=== PATIENT | female | born 1950 | race Caucasian/White ===

== ENCOUNTER 2017-04-23 13:23 | Outpatient (CLI) | payer MEDICARE, OTHER ==
--- NOTE | 2017-04-23 16:02 | Ultrasound Report ---
EXAM: ULTRASOUND LEFT PAROTID GLAND: 04/23/2017 CLINICAL INDICATION: Parotitis. TECHNIQUE: Real-time scanning was performed with associate financial representative static images obtained. FINDINGS: Ultrasound of the left parotid gland was performed. The left parotid demonstrates homogeneous echotexture. No intraparotid mass, or shadowing calculus is identified. IMPRESSION: NORMAL APPEARANCE OF THE LEFT PAROTID GLAND. TD[facility]23[facility]2017 16[facility]
== END 2017-04-23 13:24 | disposition home or self-care (01) ==
LOC: DI 13:23
PROVIDERS: ATTEND Specialist
DX: K11.21 Acute sialoadenitis (principal)
CPT/HCPCS: 76536

== ENCOUNTER 2017-05-15 08:00 | Outpatient (CLI) | payer MEDICARE, OTHER | END 2017-05-15 23:59 | disposition home or self-care (01) | LOC: LAB.R 08:00 | PROVIDERS: ATTEND Internal Medicine | DX: N20.0 Calculus of kidney (principal) | CPT/HCPCS: 81599; 82340; 82507; 82570; 83945; 84300; 84560 ==

== ENCOUNTER 2017-11-18 07:18 | Outpatient (CLI) | payer MEDICARE, OTHER ==
[2017-11-18 08:38] LABS: CK- CREATINE KINASE 74 IU/L (22-269); GLUCOSE,FASTING 131 mg/dL (70-100)
[2017-11-18 08:41] LABS: HB2 TOTAL 17.4 g/dL; HEMOGLOBIN A1C 0.87 g/dL; HEMOGLOBIN A1C % 6.7 % (4.6-6.2)
[2017-11-18 08:54] LABS: THYROID STIMULATING HORMONE 3.07 uIU/mL (0.34-5.60)
[2017-11-18 10:19] LABS: RHEUMATOID FACTOR NEGATIVE (Negative)
[2017-11-19 15:34] LABS: CREATININE 0.7 mg/dL (0.4-1.0)
[2017-11-20 14:41] LABS: ANA SCREEN POSITIVE (NEGATIVE)
== END 2017-11-18 07:19 | disposition home or self-care (01) ==
LOC: LAB 07:18
PROVIDERS: ATTEND Internal Medicine
DX: R20.0 Anesthesia of skin (principal); Z79.899 Other long term (current) drug therapy
CPT/HCPCS: 36415; 81599; 82550; 82565; 82607; 82947; 83036; 84443; 86038; 86430

== ENCOUNTER 2017-11-29 08:09 | Outpatient (CLI) | payer MEDICARE, OTHER | END 2017-11-29 08:10 | disposition home or self-care (01) | LOC: DI 08:09 | PROVIDERS: ATTEND Internal Medicine | DX: R20.0 Anesthesia of skin (principal) | CPT/HCPCS: 93922 ==

== ENCOUNTER → 2017-11-29 | Outpatient (CLI) | payer MEDICARE, OTHER ==
--- NOTE | 2017-11-29 18:07 | Ultrasound Report ---
Procedure Date: 11/29/2017 Accession Number: [id number] / [id number] Procedure: US - Duplex Lwr Ext Arterial Bilat CPT Code: FULL RESULT: EXAM: BILATERAL LOWER EXTREMITY ARTERIAL DOPPLER ULTRASOUND WITH ABIS EXAM DATE: 11/29/2017 09:35 AM. CLINICAL HISTORY: Numbness in feet. COMPARISON: None. TECHNIQUE: Real-time sonographic vascular imaging was performed by the offset assistant press operator, utilizing color-flow, Doppler flow, and spectral analysis. Multiple leasing representative static images were saved for review. FINDINGS: RIGHT LEG: SAFETY INVESTIGATOR: PSV 101 cm/sec. T waveform. PSFA: PSV 95 cm/sec. T waveform. MSFA: PSV 80 cm/sec. T Waveform. DSFA: PSV 84 cm/sec. T Waveform. PFA: PSV 62 cm/sec. T Waveform. POP: PSV 63 cm/sec. B Waveform. VERONIKA: PSV 55 cm/sec. B Waveform. HEALTH AND SAFETY ADVISOR: PSV 80 cm/sec. B Waveform. PER: PSV 53 cm/sec. B Waveform. DPA: PSV 50 cm/sec. B Waveform. LEFT LEG: SAFETY INVESTIGATOR: PSV 105 cm/sec. T Waveform. PSFA: PSV 99 cm/sec. T Waveform. MSFA: PSV 86 cm/sec. B Waveform. DSFA: PSV 81 cm/sec. T Waveform. PFA: PSV 68 cm/sec. T Waveform. POP: PSV 58 cm/sec. T Waveform. VERONIKA: PSV 50 cm/sec. B Waveform. HEALTH AND SAFETY ADVISOR: PSV 62 cm/sec. B Waveform. PER: PSV 63 cm/sec. T Waveform. DPA: PSV 52 cm/sec. B Waveform. Brachial Artery Systolic Pressure: Right 149/76. Left 151/77. Posterior tibial Artery Systolic Pressure: Right 159/63. Left 163/78. Ankle/Arm Index: Right 1.06. Left 1.07. IMPRESSION: 1. Three-vessel arterial flow to the ankles bilaterally with no focal stenosis identified. 2. Normal ABIs of 1.06 on the right, 1.07 on the left. RADIA
== END ==
LOC: DI 08:30
PROVIDERS: ATTEND Internal Medicine
DX: R20.0 Anesthesia of skin (principal)
CPT/HCPCS: 93922; 93925

== ENCOUNTER 2022-05-16 09:01 | Outpatient (CLI) | payer MEDICARE, OTHER ==
[2022-05-16 09:21] LABS: BASOPHILS % (AUTO) 0.6 %; EOSINOPHILS # (AUTO) 0.2 10^3/uL (0.0-0.7); EOSINOPHILS % (AUTO) 2.9 %; HCT - HEMATOCRIT 50.2 % (37.0-47.0); LYMPHOCYTES # (AUTO) 1.6 10^3/uL (1.5-3.5); LYMPHOCYTES % (AUTO) 24.8 %; MEAN CORPUSCULAR HEMOGLOBIN 28.1 pg (27.0-31.0); MEAN CORPUSCULAR HGB CONC 31.9 g/dL (32.0-36.0); MEAN CORPUSCULAR VOLUME 88.2 fL (81.0-99.0); MEAN PLATELET VOLUME 9.7 fL (7.9-10.8); MONOCYTES # (AUTO) 0.4 10^3/uL (0.0-1.0); MONOCYTES % (AUTO) 5.8 %; NEUTROPHILS # (AUTO) 4.3 10^3/uL (1.5-6.6); NEUTROPHILS % (AUTO) 65.1 %; PLT - PLATELET COUNT 278 10^3/uL (130-450); RED BLOOD COUNT 5.69 10^6/uL (4.20-5.40); RED CELL DISTRIBUTION WIDTH 13.5 % (12.0-15.0); WHITE BLOOD COUNT 6.6 x10^3/uL (4.8-10.8)
[2022-05-16 09:42] LABS: ALBUMIN 4.3 g/dL (3.2-5.5); ALBUMIN/GLOBULIN RATIO 1.2 (1.0-2.2); ALKALINE PHOSPHATASE 64 IU/L (42-121); ALT ALANINE AMINOTRANSFERASE 36 IU/L (10-60); AST ASPARTATE AMINOTRANSFERASE 27 IU/L (10-42); BILIRUBIN,TOTAL 0.9 mg/dL (0.2-1.0); BUN - BLOOD UREA NITROGEN 19 mg/dL (6-20); CALCIUM 9.2 mg/dL (8.5-10.3); CARBON DIOXIDE - CO2 24 mmol/L (21-32); CHLORIDE 101 mmol/L (101-111); CHOL/HDL RATIO 5.9 (<4.4); CHOLESTEROL 279 mg/dL; CREATININE 0.8 mg/dL (0.4-1.0); GFR - MDRD 71 (>89); GLUCOSE 122 mg/dL (70-100); HDL CHOLESTEROL 47 mg/dL; LDL CHOLESTEROL,CALCULATED 191 mg/dL; LDL/HDL RATIO 4.1 (<4.4); POTASSIUM 4.2 mmol/L (3.5-5.0); SODIUM 135 mmol/L (135-145); TRIGLYCERIDES 203 mg/dL; VLDL CHOLESTEROL 41 mg/dL
[2022-05-16 09:50] LABS: THYROID STIMULATING HORMONE 4.21 uIU/mL (0.34-5.60)
[2022-05-16 10:00] LABS: CREATININE,URINE 177.8 mg/dL; MICROALBUM/CREATININE RATIO,UR 19.7 ug/mg (<30.0); MICROALBUMIN,URINE 3.5 mg/dL (0-300.0)
[2022-05-16 12:19] LABS: ESTIMATED AVERAGE GLUCOSE 126 mg/dL (70-100)
== END 2022-05-16 09:02 | disposition home or self-care (01) ==
LOC: LAB 09:01
PROVIDERS: ATTEND Internal Medicine
DX: Z00.00 Encounter for general adult medical examination without abnormal findings (principal); M25.50 Pain in unspecified joint; E11.9 Type 2 diabetes mellitus without complications; R20.0 Anesthesia of skin; M19.90 Unspecified osteoarthritis, unspecified site; E53.8 Deficiency of other specified B group vitamins; Z79.899 Other long term (current) drug therapy
CPT/HCPCS: 36415; 80053; 80061; 82043; 82570; 82607; 83036; 83721; 84443; 85025